=== PATIENT | male | born 1990 | race African-American/Black ===

== ENCOUNTER 2024-09-04 01:22 | Emergency (ER) | payer MEDICAID ==
[~2024-09-04] VITALS: Ht 182.9 cm; Wt 90.0 kg
[2024-09-04 01:26] VITALS: O2SAT 98
[2024-09-04 03:39] VITALS: BP 129/58; PULSE 88; RESP 13; TEMP 36.94740; O2SAT 99
== END 2024-09-04 03:30 | disposition home or self-care (01) ==
LOC: ER 01:40
DX: G40.909 Epilepsy, unspecified, not intractable, without status epilepticus (principal); N13.30 Unspecified hydronephrosis
CPT/HCPCS: 70450; 99284; Z7610